=== PATIENT | female | born 1965 | race Caucasian/White ===

== ENCOUNTER 2021-05-22 23:32 | Observation (INO) | payer OTHER ==
[~2021-05-22] VITALS: Ht 162.6 cm; Wt 71.0 kg
[~2021-05-22 23:32] MED LIST: NO HOME MEDS; ULTRAM50 MG OR
[2021-05-23 02:02] LABS: HEMATOCRIT 39.7 % (37.0-47.0); HEMOGLOBIN 13.1 g/dl (12.0-16.0); IMMATURE GRANULOCYTES 0.3 % (0.0-5.0); MEAN CELL VOLUME 96.6 fL CALC (80.0-100.0); MEAN CORPUSCULAR HGB 31.9 pG CALC (26.0-32.0); NEUT# 7.28 thou/uL (2.00-7.15); RED BLOOD COUNT 4.11 mill/uL (4.20-5.60); RED CELL DISTRI WIDTH 11.9 % (11.5-15.5)
[2021-05-23 02:32] LABS: ALBUMIN 3.6 g/dL (3.2-5.0); ALKALINE PHOSPHATASE 93 u/l (38-126); ANION GAP 12 (6-22 (CALC)); BILIRUBIN, TOTAL 0.6 mg/dL (0.0-1.4); BUN 11 mg/dL (7-17); BUN/CREATININE RATIO 15 (12-20 (CALC)); CARBON DIOXIDE 25 mmol/l (22-30); CHLORIDE 102 mmol/l (95-108); CREATININE 0.7 mg/dL (0.5-1.0); GFR > 60 ML/MIN (>=60 (CALC)); GFR FOR AFR.AMER. > 60 ML/MIN (>=60 (CALC)); POTASSIUM 3.8 mmol/l (3.5-5.1); SGOT/AST 57 u/l (14-36); SODIUM 136 mmol/l (137-146); TOTAL PROTEIN 7.2 g/dL (6.3-8.2)
[2021-05-23 02:39] LABS: MYOGLOBIN 29 ng/mL (0 - 62)
[2021-05-23] MEDS ORDERED: TESSALON PERLE100 MG PO (11:47)
[2021-05-23] MEDS ORDERED: DEXAMETHASON6 MG PO (11:47)
[2021-05-23 12:16] VITALS: BP 114/69
== END 2021-05-23 12:49 | disposition home or self-care (01) | DRG 177 ==
LOC: ED 23:32 → ED-I 05-23 04:20 → ED 05-23 04:41 → ED-I 05-23 04:42
PROVIDERS: Emergency Medicine; ADMIT Hospitalist; ATTEND Hospitalist
DX: U07.1 COVID-19 (principal); J12.82 Pneumonia due to coronavirus disease 2019; I10 Essential (primary) hypertension
CPT/HCPCS: Q9967